=== PATIENT | female | born 1995 | race Hispanic/Latino ===

== ENCOUNTER 2024-02-12 21:53 | Emergency (ER) | payer SELFPAY ==
--- NOTE | ~2024-02-12 | CT_ITS ---
EXAMINATION: CT brain wo con DATE: 02/13/2024 04:34 INDICATION: Generalized weakness. TECHNIQUE: Computed tomography (CT) of the head was performed without intravenous contrast. The mA wa s adjusted according to patient size. Iterative reconstruction technique was employed. The dose-lengt h product was 681.00 mGy-cm. COMPARISON: None FINDINGS: There is no intracranial hemorrhage, acute infarction, or abnormal intracranial mass lesion . The ventricles are normal in size. There is mild mucosal thickening in left maxillary sinus. The ma stoid air cells are normal. The orbits are normal. IMPRESSION: 1. Normal brain. Reviewed, dictated and finalized at location A. TAL CAMPAIGN MANAGER IMPRESSION: 1. Normal brain.
--- NOTE | ~2024-02-12 | XR_ITS ---
EXAMINATION: XR chest 2V Exam Date/Time: 02/12/2024 22:15 SUPERVISOR FILES HISTORY: chest pressure Comparison: None. RESULT: Lines, tubes, and devices: None. Lungs and pleura: Mild leftward rotation. Low volumes crowding in the lateral view. Otherwise clear. Cardiomediastinal silhouette: Normal. Other: No acute osseous or upper abdominal finding. IMPRESSION: No acute cardiopulmonary process. Reviewed, dictated and finalized at location K. RVISOR FILES
[2024-02-12 21:55] VITALS: BP 119/76; PULSE 60; RESP 20; TEMP 36.7; O2SAT 100
--- NOTE | 2024-02-12 21:58 | ECG_ITS ---
Test Date: 2024-02-12 22:04:49 Measurements Intervals [place] Rate: 84 P: 63 [place]: 140 QRS: 40 QRSD: 82 T: 42 QT: 360 QTc: 428 Interpretive Statements SINUS RHYTHM NORMAL ECG No previous ECG available for comparison Electronically Signed On 02-13-2024 06:18:01 DIPLOMATIC INTERPRETER/TRANSLATOR by Demian Oakley D.O.
[2024-02-12 22:00] VITALS: BP 107/75; PULSE 62; RESP 18; TEMP 36.1; O2SAT 100
[2024-02-12 22:22] LABS: Basophils Absolute Auto 0.1 K/mm3 (0.0-0.1); Basophils Percent Auto 0.7 % (0.2-1.2); Eosinophils Absolute Auto 0.1 K/mm3 (0-0.3); Hematocrit 36.5 % (37.0-47.0); Hemoglobin 12.2 g/dL (12.0-15.0); Immature Granulocyte Absolute 0.04 K/mm3 (0.00-0.031); Immature Granulocyte Percent A 0.3 % (0-0.5); Immature Platelet Fraction Pct 6.2 % (0.9-11.2); Lymphocytes Absolute Auto 3.03 K/mm3 (0.9-3.2); Lymphocytes Percent Auto 24.7 % (18.3-44.2); Mean Corpuscular HGB Conc 33.4 g/dl (32-36); Mean Corpuscular Volume 89.9 fl (80-100); Monocytes Absolute Auto 0.9 K/mm3 (0.1-0.6); Monocytes Percent Auto 7.3 % (2.6-8.5); Neutrophils Absolute Auto 8.1 K/mm3 (1.3-6.7); Platelet Count Result 375 k/mm3 (150-375); Red Blood Count 4.06 M/mm3 (4.2-5.4); Red Cell Distribution Width 12.9 % (11.5-14.5); White Blood Count 12.3 K/mm3 (4.5-10.0)
[2024-02-12 22:39] LABS: INR 1.1; Prothrombin Time 14.3 Seconds (11.1-14.7)
[2024-02-12 22:40] LABS: Partial Thromboplastin Time 26.9 Seconds (22.3-36.8)
[2024-02-12 22:50] LABS: Alanine Aminotransferase 13 U/L (6-35); Albumin Level 4.1 g/dL (3.5-5.1); Alkaline Phosphatase 73 U/L (38-126); Anion Gap 5 mmol/L (4-12); Aspartate Amino Transferase 26 U/L (14-36); Bilirubin,Total 0.3 mg/dL (0.2-1.3); Blood Urea Nitrogen 10 mg/dL (7-17); Calcium 8.5 mg/dL (8.4-10.2); Carbon Dioxide 25 mmol/L (22-30); Chloride 103 mmol/L (98-107); Estimated Glomerular Filt Rate > 60; Glucose 83 mg/dL (65-110); Lipase 108 U/L (23-300); Potassium 3.8 mmol/L (3.4-5.0); Sodium 133 mmol/L (137-145)
[2024-02-12 23:02] LABS: Troponin I < 0.012 ng/mL (0.000-0.034)
[2024-02-12 23:41] VITALS: O2SAT 99
--- NOTE | 2024-02-13 00:36 | ECG_ITS ---
Test Date: 2024-02-13 00:39:55 Measurements Intervals [place] Rate: 62 P: 49 DC: 130 QRS: 47 QRSD: 79 T: 40 QT: 421 QTc: 429 Interpretive Statements SINUS RHYTHM BASELINE WANDER- V5 NORMAL ECG Compared to ECG 02/12/2024 22:04:49 No significant changes Electronically Signed On 02-13-2024 06:19:23 INNER LAYER SCRUBBER TENDER by Demian Oakley D.O.
[2024-02-13 01:02] VITALS: BP 113/77; PULSE 67; RESP 14; O2SAT 100
[2024-02-13 01:19] LABS: Troponin I < 0.012 ng/mL (0.000-0.034)
[2024-02-13 02:28] VITALS: BP 111/82; PULSE 92; RESP 13; O2SAT 100
[2024-02-13] MEDS: SODIUM CHLORIDE 0.9% IV 1,000 ML 999 ML IV CONT (02:51)
[2024-02-13 03:04] LABS: Creatine Kinase 66 U/L (30-135)
[2024-02-13 03:09] LABS: Ethanol < 10 mg/dL (<10)
[2024-02-13 03:25] LABS: Acetaminophen < 10 ug/mL (10-30); Salicylate < 1.0 mg/dL (2-20)
--- NOTE | 2024-02-13 03:31 | ED_ITS ---
HPI - General Adult General Chief complaint: Chest Pain <Royce Monzon MD - Last Filed: 02/13/24 03:33> Stated complaint: chest pressure, meth use <Royce Monzon MD - Last Filed: 02/13/24 03:33> Time Seen by Provider: 02/13/24 02:14 <Royce Monzon MD - Last Filed: 02/13/24 03:33> History of Present Illness HPI narrative: Patient 28-year-old female who presents emergency department with chief complaint of chest pain and pain all over. Patient reports that she uses methamphetamine and other drugs reports that she feels heavy all over reports that this started after she was detained by the police the patient states that she has had some thoughts of hurting herself but does not have a specific plan patient does report that she has had prior issues with chronic back pain and chronic pain after she has fallen off of a roof and off of a balcony in the past <Royce Monzon MD - Last Filed: 02/13/24 03:33> Related Data Allergies/adverse reactions: Allergies Allergy/AdvReac Type Severity Reaction Status Date / Time No Known Allergies Allergy Verified 02/13/24 02:52 <Royce Monzon MD - Last Filed: 02/13/24 03:33> Review of Systems Review of Systems: A 10 system review of systems was completed on the patient and is negative except for what is stated in the HPI. Nursing and ancillary documentation was reviewed. <Royce Monzon MD - Last Filed: 02/13/24 03:33> PMFSH Social History Social History: Social History Substance use type: amphetamines <Royce Monzon MD - Last Filed: 02/13/24 03:33> Exam Narrative: GENERAL: Well-appearing, well-nourished, and in no acute distress. HEAD: Normocephalic, atraumatic. EYES: PERRLA and EOMI. ENT: Nares clear, no rhinorrhea or epistaxis. Mucous membranes moist. NECK: Supple. CHEST: Clear to auscultation. No respiratory distress. HEART: Regular rate and rhythm. No murmur heard. Normal peripheral pulses. ABDOMEN: Soft, nontender, nondistended, normal active bowel sounds. EXTREMITIES: Normal range of motion. No edema. SKIN: Warm, dry, no rash. NEURO: No focal deficits. Alert and oriented x3. PSYCH: Normal mood and affect. <Royce Monzon MD - Last Filed: 02/13/24 03:33> Course Course Emergency Course: [facility] 0834: Patient signed out pending sobriety, and psychiatric evaluation for depression. Crisis team evaluated the patient the patient is no longer endorsing any sadness. patient discharged. <Ramiro Suresh MD - Last Filed: 02/13/24 08:35> Vital Signs Vital signs: Vital Signs Temperature 98.1 F 02/12/24 21:55 Pulse Rate 60 02/12/24 21:55 Respiratory Rate 20 02/12/24 21:55 Blood Pressure 119/76 02/12/24 21:55 Pulse Oximetry 100 02/12/24 21:55 Oxygen Delivery Room Air 02/12/24 21:55 Temperature 97.0 F L 02/12/24 22:00 Pulse Rate 62 02/13/24 06:59 Respiratory Rate 17 02/13/24 06:59 Blood Pressure 118/87 02/13/24 06:59 Pulse Oximetry 100 02/13/24 06:59 Oxygen Delivery Room Air 02/12/24 23:41 <Royce Monzon MD - Last Filed: 02/13/24 03:33> Vital Signs Temperature 98.1 F 02/12/24 21:55 Pulse Rate 60 02/12/24 21:55 Respiratory Rate 20 02/12/24 21:55 Blood Pressure 119/76 02/12/24 21:55 Pulse Oximetry 100 02/12/24 21:55 Oxygen Delivery Room Air 02/12/24 21:55 Temperature 97.0 F L 02/12/24 22:00 Pulse Rate 62 02/13/24 06:59 Respiratory Rate 17 02/13/24 06:59 Blood Pressure 118/87 02/13/24 06:59 Pulse Oximetry 100 02/13/24 06:59 Oxygen Delivery Room Air 02/12/24 23:41 <Ramiro Suresh MD - Last Filed: 02/13/24 08:35> Medical Decision Making Vital Signs Vital Signs: Vital Signs Temperature 98.1 F 02/12/24 21:55 Pulse Rate 60 02/12/24 21:55 Respiratory Rate 20 02/12/24 21:55 Blood Pressure 119/76 02/12/24 21:55 Pulse Oximetry 100 02/12/24 21:55 Oxygen Delivery Room Air 02/12/24 21:55 Temperature 97.0 F L 02/12/24 22:00 Pulse Rate 62 02/13/24 06:59 Respiratory Rate 17 02/13/24 06:59 Blood Pressure 118/87 02/13/24 06:59 Pulse Oximetry 100 02/13/24 06:59 Oxygen Delivery Room Air 02/12/24 23:41 <Royce Monzon MD - Last Filed: 02/13/24 03:33> Vital Signs Temperature 98.1 F 02/12/24 21:55 Pulse Rate 60 02/12/24 21:55 Respiratory Rate 20 02/12/24 21:55 Blood Pressure 119/76 02/12/24 21:55 Pulse Oximetry 100 02/12/24 21:55 Oxygen Delivery Room Air 02/12/24 21:55 Temperature 97.0 F L 02/12/24 22:00 Pulse Rate 62 02/13/24 06:59 Respiratory Rate 17 02/13/24 06:59 Blood Pressure 118/87 02/13/24 06:59 Pulse Oximetry 100 02/13/24 06:59 Oxygen Delivery Room Air 02/12/24 23:41 <Ramiro Suresh MD - Last Filed: 02/13/24 08:35> Lab Data Result diagrams: 02/12/24 22:09 02/12/24 22:09 <Royce Monzon MD - Last Filed: 02/13/24 03:33> Labs: Lab Results 02/12/24 02/13/24 02/13/24 Range/Units 22:09 00:50 00:58 WBC 12.3 H (4.5-10.0) K/mm3 RBC 4.06 L (4.2-5.4) M/mm3 Hgb 12.2 (12.0-15.0) g/dL Hct 36.5 L (37.0-47.0) % MCV 89.9 (80-100) fl MCH 30.0 (26-34) pg MCHC 33.4 (32-36) g/dl RDW 12.9 (11.5-14.5) % Plt Count 375 (150-375) k/mm3 MPV 10.0 (7.4-10.4) fl Immature Gran % (Auto) 0.3 (0-0.5) % Neut % (Auto) 66.0 (45.5-73.1) % Lymph % (Auto) 24.7 (18.3-44.2) % Stone % (Auto) 7.3 (2.6-8.5) % Eos % (Auto) 1.0 (0-4.4) % Baso % (Auto) 0.7 (0.2-1.2) % Lymph # (Auto) 3.03 (0.9-3.2) K/mm3 Stone # (Auto) 0.9 H (0.1-0.6) K/mm3 Eos # (Auto) 0.1 (0-0.3) K/mm3 Baso # (Auto) 0.1 (0.0-0.1) K/mm3 Abs Immat Gran (auto) 0.04 H (0.00-0.031) K/mm3 Absolute Neuts (auto) 8.1 H (1.3-6.7) K/mm3 Absolute Nucleated RBC 0.000 (0.0-0.012) K/mm3 Nucleated RBC % 0.0 (0.0-0.2) % % Immature Plt Fraction 6.2 (0.9-11.2) % PT 14.3 (11.1-14.7) Seconds INR 1.1 APTT 26.9 (22.3-36.8) Seconds Sodium 133 L (137-145) mmol/L Potassium 3.8 (3.4-5.0) mmol/L Chloride 103 (98-107) mmol/L Carbon Dioxide 25 (22-30) mmol/L Anion Gap 5 (4-12) mmol/L BUN 10 (7-17) mg/dL Creatinine 0.80 (0.7-1.0) mg/dL Estim Creat Clear Calc Not Reportable Estimated GFR > 60 (59 - ) Glucose 83 (65-110) mg/dL Calcium 8.5 (8.4-10.2) mg/dL Magnesium 2.0 (1.6-2.3) mg/dL Total Bilirubin 0.3 (0.2-1.3) mg/dL AST 26 (14-36) U/L ALT 13 (6-35) U/L Alkaline Phosphatase 73 (38-126) U/L Total Creatine Kinase 66 (30-135) U/L Troponin I < 0.012 < 0.012 (0.000-0.034) ng/mL Total Protein 7.0 (6.3-8.2) g/dL Albumin 4.1 (3.5-5.1) g/dL Lipase 108 (23-300) U/L Urine Color (Yellow) Urine Appearance (Clear) Urine pH (5.0-9.0) Ur Specific [place] (1.001-1.035) Urine Protein (Negative) mg/dL Urine Glucose (UA) (Negative) mg/dL Urine Ketones (Negative) mg/dL Ur Blood (Man) (Negative) Urine Nitrate (Negative) Urine Bilirubin (Negative) Urine Urobilinogen (<2.0) mg/dL Leukocyte Esterase Rfl (Negative) CAMI/UL Urine RBC (0-2) /hpf Urine WBC (0-3) /hpf Ur Squamous Epith Cells (Few) /hpf Urine Bacteria /hpf Urine Casts POC Urine HCG, Qual (Negative) Salicylates < 1.0 L (2-20) mg/dL Urine Opiates Screen (Negative) Urine Methadone Screen (Negative) Acetaminophen < 10 L (10-30) ug/mL Ur Barbiturates Screen (Negative) Ur Phencyclidine Scrn (Negative) Ur Amphetamine Screen (Negative) U Benzodiazepines Scrn (Negative) Urine Cocaine Screen (Negative) U Cannabinoids Screen (Negative) Ethyl Alcohol < 10 (<10) mg/dL Influenza A (RT-PCR) (Negative) Influenza B (RT-PCR) (Negative) RSV (RT-PCR) (Negative) SARS-CoV-2 RNA (RT-PCR) (Negative) 02/13/24 02/13/24 02/13/24 Range/Units 03:28 03:37 04:07 WBC (4.5-10.0) K/mm3 RBC (4.2-5.4) M/mm3 Hgb (12.0-15.0) g/dL Hct (37.0-47.0) % MCV (80-100) fl MCH (26-34) pg MCHC (32-36) g/dl RDW (11.5-14.5) % Plt Count (150-375) k/mm3 MPV (7.4-10.4) fl Immature Gran % (Auto) (0-0.5) % Neut % (Auto) (45.5-73.1) % Lymph % (Auto) (18.3-44.2) % Stone % (Auto) (2.6-8.5) % Eos % (Auto) (0-4.4) % Baso % (Auto) (0.2-1.2) % Lymph # (Auto) (0.9-3.2) K/mm3 Stone # (Auto) (0.1-0.6) K/mm3 Eos # (Auto) (0-0.3) K/mm3 Baso # (Auto) (0.0-0.1) K/mm3 Abs Immat Gran (auto) (0.00-0.031) K/mm3 Absolute Neuts (auto) (1.3-6.7) K/mm3 Absolute Nucleated RBC (0.0-0.012) K/mm3 Nucleated RBC % (0.0-0.2) % % Immature Plt Fraction (0.9-11.2) % PT (11.1-14.7) Seconds INR APTT (22.3-36.8) Seconds Sodium (137-145) mmol/L Potassium (3.4-5.0) mmol/L Chloride (98-107) mmol/L Carbon Dioxide (22-30) mmol/L Anion Gap (4-12) mmol/L BUN (7-17) mg/dL Creatinine (0.7-1.0) mg/dL Estim Creat Clear Calc Estimated GFR (59 - ) Glucose (65-110) mg/dL Calcium (8.4-10.2) mg/dL Magnesium (1.6-2.3) mg/dL Total Bilirubin (0.2-1.3) mg/dL AST (14-36) U/L ALT (6-35) U/L Alkaline Phosphatase (38-126) U/L Total Creatine Kinase (30-135) U/L Troponin I < 0.012 (0.000-0.034) ng/mL Total Protein (6.3-8.2) g/dL Albumin (3.5-5.1) g/dL Lipase (23-300) U/L Urine Color Yellow (Yellow) Urine Appearance Clear (Clear) Urine pH 5.5 (5.0-9.0) Ur Specific [place] 1.013 (1.001-1.035) Urine Protein Negative (Negative) mg/dL Urine Glucose (UA) Negative (Negative) mg/dL Urine Ketones Negative (Negative) mg/dL Ur Blood (Man) Negative (Negative) Urine Nitrate Positive H (Negative) Urine Bilirubin Negative (Negative) Urine Urobilinogen 0.2 (<2.0) mg/dL Leukocyte Esterase Rfl 2+ H (Negative) CAMI/UL Urine RBC 0-2 (0-2) /hpf Urine WBC 21-50 H (0-3) /hpf Ur Squamous Epith Cells None seen (Few) /hpf Urine Bacteria 4+ H /hpf Urine Casts 0-2 POC Urine HCG, Qual Negative (Negative) Salicylates (2-20) mg/dL Urine Opiates Screen Negative (Negative) Urine Methadone Screen Negative (Negative) Acetaminophen (10-30) ug/mL Ur Barbiturates Screen Negative (Negative) Ur Phencyclidine Scrn Negative (Negative) Ur Amphetamine Screen Positive A (Negative) U Benzodiazepines Scrn Negative (Negative) Urine Cocaine Screen Negative (Negative) U Cannabinoids Screen Positive (Negative) Ethyl Alcohol (<10) mg/dL Influenza A (RT-PCR) Negative (Negative) Influenza B (RT-PCR) Negative (Negative) RSV (RT-PCR) Negative (Negative) SARS-CoV-2 RNA (RT-PCR) Negative (Negative) <Royce Monzon MD - Last Filed: 02/13/24 03:33> Lab Results 02/12/24 02/13/24 02/13/24 Range/Units 22:09 00:50 00:58 WBC 12.3 H (4.5-10.0) K/mm3 RBC 4.06 L (4.2-5.4) M/mm3 Hgb 12.2 (12.0-15.0) g/dL Hct 36.5 L (37.0-47.0) % MCV 89.9 (80-100) fl MCH 30.0 (26-34) pg MCHC 33.4 (32-36) g/dl RDW 12.9 (11.5-14.5) % Plt Count 375 (150-375) k/mm3 MPV 10.0 (7.4-10.4) fl Immature Gran % (Auto) 0.3 (0-0.5) % Neut % (Auto) 66.0 (45.5-73.1) % Lymph % (Auto) 24.7 (18.3-44.2) % Stone % (Auto) 7.3 (2.6-8.5) % Eos % (Auto) 1.0 (0-4.4) % Baso % (Auto) 0.7 (0.2-1.2) % Lymph # (Auto) 3.03 (0.9-3.2) K/mm3 [place] # (Auto) 0.9 H (0.1-0.6) K/mm3 Eos # (Auto) 0.1 (0-0.3) K/mm3 Baso # (Auto) 0.1 (0.0-0.1) K/mm3 Abs Immat Gran (auto) 0.04 H (0.00-0.031) K/mm3 Absolute Neuts (auto) 8.1 H (1.3-6.7) K/mm3 Absolute Nucleated RBC 0.000 (0.0-0.012) K/mm3 Nucleated RBC % 0.0 (0.0-0.2) % % Immature Plt Fraction 6.2 (0.9-11.2) % PT 14.3 (11.1-14.7) Seconds INR 1.1 APTT 26.9 (22.3-36.8) Seconds Sodium 133 L (137-145) mmol/L Potassium 3.8 (3.4-5.0) mmol/L Chloride 103 (98-107) mmol/L Carbon Dioxide 25 (22-30) mmol/L Anion Gap 5 (4-12) mmol/L BUN 10 (7-17) mg/dL Creatinine 0.80 (0.7-1.0) mg/dL Estim Creat Clear Calc Not Reportable Estimated GFR > 60 (59 - ) Glucose 83 (65-110) mg/dL Calcium 8.5 (8.4-10.2) mg/dL Magnesium 2.0 (1.6-2.3) mg/dL Total Bilirubin 0.3 (0.2-1.3) mg/dL AST 26 (14-36) U/L ALT 13 (6-35) U/L Alkaline Phosphatase 73 (38-126) U/L Total Creatine Kinase 66 (30-135) U/L Troponin I < 0.012 < 0.012 (0.000-0.034) ng/mL Total Protein 7.0 (6.3-8.2) g/dL Albumin 4.1 (3.5-5.1) g/dL Lipase 108 (23-300) U/L Urine Color (Yellow) Urine Appearance (Clear) Urine pH (5.0-9.0) Ur Specific [place] (1.001-1.035) Urine Protein (Negative) mg/dL Urine Glucose (UA) (Negative) mg/dL Urine Ketones (Negative) mg/dL Ur Blood (Man) (Negative) Urine Nitrate (Negative) Urine Bilirubin (Negative) Urine Urobilinogen (<2.0) mg/dL Leukocyte Esterase Rfl (Negative) CAMI/UL Urine RBC (0-2) /hpf Urine WBC (0-3) /hpf Ur Squamous Epith Cells (Few) /hpf Urine Bacteria /hpf Urine Casts POC Urine HCG, Qual (Negative) Salicylates < 1.0 L (2-20) mg/dL Urine Opiates Screen (Negative) Urine Methadone Screen (Negative) Acetaminophen < 10 L (10-30) ug/mL Ur Barbiturates Screen (Negative) Ur Phencyclidine Scrn (Negative) Ur Amphetamine Screen (Negative) U Benzodiazepines Scrn (Negative) Urine Cocaine Screen (Negative) U Cannabinoids Screen (Negative) Ethyl Alcohol < 10 (<10) mg/dL Influenza A (RT-PCR) (Negative) Influenza B (RT-PCR) (Negative) RSV (RT-PCR) (Negative) SARS-CoV-2 RNA (RT-PCR) (Negative) 02/13/24 02/13/24 02/13/24 Range/Units 03:28 03:37 04:07 WBC (4.5-10.0) K/mm3 RBC (4.2-5.4) M/mm3 Hgb (12.0-15.0) g/dL Hct (37.0-47.0) % MCV (80-100) fl MCH (26-34) pg MCHC (32-36) g/dl RDW (11.5-14.5) % Plt Count (150-375) k/mm3 MPV (7.4-10.4) fl Immature Gran % (Auto) (0-0.5) % Neut % (Auto) (45.5-73.1) % Lymph % (Auto) (18.3-44.2) % Stone % (Auto) (2.6-8.5) % Eos % (Auto) (0-4.4) % Baso % (Auto) (0.2-1.2) % Lymph # (Auto) (0.9-3.2) K/mm3 [place] # (Auto) (0.1-0.6) K/mm3 Eos # (Auto) (0-0.3) K/mm3 Baso # (Auto) (0.0-0.1) K/mm3 Abs Immat Gran (auto) (0.00-0.031) K/mm3 Absolute Neuts (auto) (1.3-6.7) K/mm3 Absolute Nucleated RBC (0.0-0.012) K/mm3 Nucleated RBC % (0.0-0.2) % % Immature Plt Fraction (0.9-11.2) % PT (11.1-14.7) Seconds INR APTT (22.3-36.8) Seconds Sodium (137-145) mmol/L Potassium (3.4-5.0) mmol/L Chloride (98-107) mmol/L Carbon Dioxide (22-30) mmol/L Anion Gap (4-12) mmol/L BUN (7-17) mg/dL Creatinine (0.7-1.0) mg/dL Estim Creat Clear Calc Estimated GFR (59 - ) Glucose (65-110) mg/dL Calcium (8.4-10.2) mg/dL Magnesium (1.6-2.3) mg/dL Total Bilirubin (0.2-1.3) mg/dL AST (14-36) U/L ALT (6-35) U/L Alkaline Phosphatase (38-126) U/L Total Creatine Kinase (30-135) U/L Troponin I < 0.012 (0.000-0.034) ng/mL Total Protein (6.3-8.2) g/dL Albumin (3.5-5.1) g/dL Lipase (23-300) U/L Urine Color Yellow (Yellow) Urine Appearance Clear (Clear) Urine pH 5.5 (5.0-9.0) Ur Specific [place] 1.013 (1.001-1.035) Urine Protein Negative (Negative) mg/dL Urine Glucose (UA) Negative (Negative) mg/dL Urine Ketones Negative (Negative) mg/dL Ur Blood (Man) Negative (Negative) Urine Nitrate Positive H (Negative) Urine Bilirubin Negative (Negative) Urine Urobilinogen 0.2 (<2.0) mg/dL Leukocyte Esterase Rfl 2+ H (Negative) CAMI/UL Urine RBC 0-2 (0-2) /hpf Urine WBC 21-50 H (0-3) /hpf Ur Squamous Epith Cells None seen (Few) /hpf Urine Bacteria 4+ H /hpf Urine Casts 0-2 POC Urine HCG, Qual Negative (Negative) Salicylates (2-20) mg/dL Urine Opiates Screen Negative (Negative) Urine Methadone Screen Negative (Negative) Acetaminophen (10-30) ug/mL Ur Barbiturates Screen Negative (Negative) Ur Phencyclidine Scrn Negative (Negative) Ur Amphetamine Screen Positive A (Negative) U Benzodiazepines Scrn Negative (Negative) Urine Cocaine Screen Negative (Negative) U Cannabinoids Screen Positive (Negative) Ethyl Alcohol (<10) mg/dL Influenza A (RT-PCR) Negative (Negative) Influenza B (RT-PCR) Negative (Negative) RSV (RT-PCR) Negative (Negative) SARS-CoV-2 RNA (RT-PCR) Negative (Negative) <Ramiro Suresh MD - Last Filed: 02/13/24 08:35> Discharge Plan Discharge Clinical Impression: Atypical chest pain, Methamphetamine abuse, Feeling of sadness <Royce Monzon MD - Last Filed: 02/13/24 03:33> Patient Disposition: Home, Self-Care <Royce Monzon MD - Last Filed: 02/13/24 03:33> Condition: Stable <Royce Monzon MD - Last Filed: 02/13/24 03:33> Instructions: Antibiotic Form, Chest Pain (ED) <Royce Monzon MD - Last Filed: 02/13/24 03:33> Additional Instructions: please refrain from using meth. Follow-up with your primary care physici an for further management. Return to the ED if you develop chest pain difficulty breathing or thoughts of harming herself. <Royce Monzon MD - Last Filed: 02/13/24 03:33> Follow-up/Referrals: PHYSICIAN,[facility] [Non-Staff] - <Royce Monzon MD - Last Filed: 02/13/24 03:33>
[2024-02-13 03:40] LABS: BEDSIDEPREGUCG Negative (Negative)
[2024-02-13 03:55] VITALS: BP 107/77; PULSE 72; RESP 15; O2SAT 100
[2024-02-13 03:59] LABS: Bacteria Urine 4+ /hpf; Bilirubin Urine Negative (Negative); Blood Urine Negative (Negative); Color Urine Yellow (Yellow); Glucose Urine UA Negative (Negative); Ketones Urine Negative (Negative); Leukocyte Esterase Ur 2+ LEU/UL (Negative); Nitrate Urine Positive (Negative); Non Pathogenic Casts 0-2; Protein Urine Negative (Negative); RBC Urine 0-2 /hpf (0-2); Specific Grav Ur 1.013 (1.001-1.035); Squamous Epithelial Cell Urine None Seen /hpf (Few); Urobilinogen Urine 0.2 mg/dL (<2.0); WBC Urine 21-50 /hpf (0-3); pH Urine 5.5 (5.0-9.0)
[2024-02-13 04:00] LABS: Add Urine Microscopic? YES; Appearance Urine Clear (Clear)
--- NOTE | 2024-02-13 04:04 | ECG_ITS ---
Test Date: 2024-02-13 04:09:58 Measurements Intervals [place] Rate: 55 P: 60 IN: 138 QRS: 61 QRSD: 79 T: 51 QT: 447 QTc: 428 Interpretive Statements SINUS BRADYCARDIA BORDERLINE ECG Compared to ECG 02/13/2024 00:39:55 HEART RATE HAS DECREASED Electronically Signed On 02-13-2024 06:20:15 [employer] CONSULTANT by Demian Oakley D.O.
[2024-02-13 04:21] LABS: Influenza A QL RT-PCR Negative (Negative); Influenza B QL RT-PCR Negative (Negative); RSV RNA, RT-PCR Negative (Negative); SARS-CoV-2 RNA PCR Negative (Negative)
[2024-02-13 04:28] LABS: Barbiturate Screen Urine Negative (Negative); Benzodiazepines Screen Urine Negative (Negative); Cannabinoid Screen Urine Positive (Negative); Cocaine Screen Urine Negative (Negative); Methadone Screen Urine Negative (Negative); Opiate Screen Urine Negative (Negative); Phencyclidine Screen Urine Negative (Negative)
[2024-02-13 04:40] LABS: Amphetamine Screen Urine Positive (Negative)
[2024-02-13 04:41] LABS: Troponin I < 0.012 ng/mL (0.000-0.034)
--- NOTE | 2024-02-13 06:36 | PC.NURSE ---
Spoke with pt through cooker tender. Pt states she has been feeling very alone, depressed, and hopeless but denies having a plan to harm herself. Pt endorses her mother of cancer about 7 months ago, and she began using ice daily to cope. Pt states she wants help with her substance abuse.
[2024-02-13 06:59] VITALS: BP 118/87; PULSE 62; RESP 17; O2SAT 100
== END 2024-02-13 09:21 | disposition home or self-care (01) ==
PROVIDERS: Emergency Provider Emergency Medicine
DX: R07.89 Other chest pain (principal); F15.10 Other stimulant abuse, uncomplicated; R45.89 Other symptoms and signs involving emotional state; Z11.52 Encounter for screening for COVID-19; R00.1 Bradycardia, unspecified
CPT/HCPCS: 36415; 70450; 71046; 80053; 80143; 80179; 80307; 81001; 81025; 82077; 82550; 83690; 83735; 84484; 85025; 85055; 85610; 85730; 87086; 87186; 87637; 93005; 96360; 99284; J7030